=== PATIENT | male | born 1940 | race Caucasian/White ===

== ENCOUNTER 2017-07-18 14:06 | Emergency (ER) | payer MEDICARE, OTHER, MEDICAID ==
[~2017-07-18] VITALS: Ht 177.8 cm; Wt 102.1 kg
[~2017-07-18 14:06] MED LIST: AC325T PO; AC80CT PO; ACYC800T57 PO; ALBU0.8322 IH; AMLO10TA2 PO; AMLO5TAB2 PO; ASP81TEC PO; ATRV10T PO; AZIT-21 PO; AZIT250T12 PO; B12 INJECTION IM; BETH50TA PO; CARB1TAB PO; CARB1TAB22 PO; CARB1TAB4 PO; CARB1TAB44; CARB1TAB6; CARB1TAB6 PO; CARV12.5 PO; CARV6.25 PO; CEFD300C16 PO; CEFU500T5 PO; CETAPHIL CLEANSER TOP; CETAPHIL LOTION TOP; CITA10TA70 PO; CLPD75T PO; CPR500T PO; CRV25T PO; CYAN100053 IM; DCS100C PO; DICL100G13 TOP; DIPH25CA79 PO; DIPH28.33 TP; DOXY100C2 PO; EMOL226L TP; ESCT10T PO; FAMO20TA5 PO; FLUT1DIS26 IH; FRSM40T PO; FURO20TA4 PO; HYDR-3714 PO; HYDR-3720 PO; IPRA3AMP19 IH; KCL10CCR; LACT1CAP45 PO; LEVO125T6 PO; LEVO150T6 PO; LEVO500T69 PO; LEVO750T24 PO; LISI2.5T; LISI20TA PO; LISI40TA PO; LOPE2CAP29 PO; LVCR25100 PO; LVT.088T PO; LVT.15T PO; LVT.1T PO; MAGN-47 PO; MIDO5TAB PO; MPR22T TP; NF-ESOM40C PO; NYST1POW15 TOP; PNT40TEC PO; POTA20TA15 PO; SCP1.5TD TD; SELE118S2 TP; SENN1TAB76 PO; SNN187T PO; SULF1TAB38 PO; TR1O15 TOP; VALS320T8 PO; VISCOUS LIDOCAINE 2% MM; VLS80C PO; [UNRECOGNIZED DRUG - OTHER] TOP
--- OUTSIDE RECORDS SUMMARY | 2017-07-18 14:12 | XMS REPORT | Continuity of Care Document ---
Author Author [facility] Organization [facility] Address Unknown Phone Unavailable Allergies Active Description Code Type Severity Reaction Onset Reported/Identified Relationship to Patient Clinical Status Yes No Known Drug Allergies [id number] Drug Allergy Unknown N/ A 01/05/2012 Medications Problems Date Dx Coded Attending Type Code Diagnosis Diagnosed By 12/16/2013 MYRIAM MASON, JAMES Olsen Ot 214.4 12/16/2013 MYRIAM MASON, JAMES Olsen Ot 550.90 08/25/2015 CRUZ MASON, ÁNGEL Chun Ot 402.90 08/25/2015 CRUZ MASON, ÁNGEL Chun Ot 414.00 08/25/2015 CRUZ MASON, ÁNGEL Chun Ot V45.01 08/25/2015 JULIEN MASON, IGGY Rodney Ot 599.0 08/25/2015 MATT PA, CHET K Ot 244.9 08/25/2015 MATT PA, CHET K Ot 332.0 08/25/2015 MATT PA, CHET K Ot 404.90 08/25/2015 MATT PA, CHET K Ot 414.01 08/25/2015 MATT PA, CHET K Ot 433.10 08/25/2015 MATT PA, CHET K Ot 585.9 08/25/2015 MATT PA, CHET K Ot V45.01 08/25/2015 MYRIAM MASON, JAMES Olsen Ot 550.90 08/25/2015 MYRIAM MASON, JAMES Olsen Ot V72.63 08/25/2015 MYRIAM MASON, JAMES Olsen Ot V72.81 08/25/2015 MYRIAM MASON, JAMES Olsen Ot V72.84 08/25/2015 MYRIAM MASON, JAMES Olsen Ot V74.8 08/28/2015 JULIEN MASON, IGGY Rodney Ot B35.6 08/28/2015 JULIEN MASON, IGGY Rodney Ot E03.9 08/28/2015 JULIEN MASON, IGGY A Ot E78.0 08/28/2015 JULIEN MASON, IGGY A Ot G20 08/28/2015 JULIEN MASON, IGGY A Ot I12.9 08/28/2015 JULIEN MASON, IGGY A Ot I25.10 08/28/2015 JULIEN MASON, IGGY A Ot I50.42 08/28/2015 JULIEN MASON, IGGY A Ot J18.9 08/28/2015 JULIEN MASON, IGGY A Ot K21.9 08/28/2015 JULIEN MASON, IGGY A Ot L89.311 08/28/2015 JULIEN MASON, IGGY A Ot L89.321 08/28/2015 JULIEN MASON, IGGY A Ot N18.9 08/28/2015 JULIEN MASON, IGGY A Ot N31.9 08/28/2015 JULIEN MASON, IGGY A Ot R13.10 08/28/2015 JULIEN MASON, IGGY A Ot R26.0 08/28/2015 JULIEN MASON, IGGY A Ot Z23 08/28/2015 JULIEN MASON, IGGY A Ot Z66 08/28/2015 JULIEN MASON, IGGY A Ot Z87.891 08/28/2015 JULIEN MASON, IGGY A Ot Z95.0 07/16/2016 Ot 401.9 HYPERTENSION NOS 07/16/2016 Ot V58.69 OTH MED,LT,CURRENT USE Procedures Results Encounters ACCT No. Visit Date/Time Discharge Status Pt. Type Provider Facility Loc./Unit Complaint [id number] 08/25/2015 03:28:00 2015 12:30:00 DIS Inpatient IGGY VICTORIA MD Via [address] [id number] 12/15/2013 07:04:00 2013 12:06:00 DIS Outpatient JAMES MIGUEL MD [facility] [id number] 12/14/2013 09:06:00 2013 23:59:59 CLS Outpatient JAMES MIGUEL MD [facility] PREOP [id number] 11/01/2013 12:28:00 2013 23:59:59 CLS Outpatient CHET ARAUZ [facility] [id number] 10/28/2013 09:13:00 2013 23:59:59 CLS Outpatient JULIEN MASON, IGGY Rodney [facility] [id number] 10/05/2013 13:34:00 2013 23:59:59 CLS Outpatient CRUZ MASON, ÁNGEL Chun [facility] CARD [id number] 04/14/2013 10:16:00 2012 23:59:59 CLS Outpatient [id number] 12/31/2011 14:52:00 Document Registration
--- NOTE | 2017-07-18 14:28 | ED General ---
General Chief Complaint: Respiratory Problems Stated Complaint: GURGLING Nursing Triage Note: PT TO [facility] WITH CC OF DIFFICULTY SWALLOWING AND "GARGLING." PT HAS A HX OF DYSPHAGIA WITH A 21 LB WEIGHT LOSS OVER THE LAST MONTH. PT NONE VERBAL , MOTIONS NO WHEN ASKED OF PAIN OR NAUSEA. Nursing Sepsis Screen: No Definite Risk Source of Information: EMS, Care Home Records Exam Limitations: No Limitations History of Present Illness Time Seen by Provider: 14:26 Initial Comments The patient is a 77-year-old white male from [facility]. The nursing staff at [facility] apparently called Dr. Jorge who is taking the outpatient calls for the family practice group. Their concern was that he had lost 20 pounds over the last month. He seemed to be having difficulties in swallowing. He also exhibited a gurgling from the throat. They apparently were unable to address this by oral pharyngeal suctioning. They called Dr. Jorge who apparently stated that he had no previous knowledge of the patient as he was a patient of Dr. Cabral's and therefore they should send him to the emergency room for further workup. Timing/Duration: Other Modifying Factors: improves with Cold Therapy Allergies and Home Medications Allergies Coded Allergies: No Known Drug Allergies (Verified , 01/05/12) Home Medications Acetaminophen 325 Mg Tablet, 650 MG PO Q4H PRN for PAIN, (Reported) TAKES 2 (325MG) TABLETS NEEDED FOR PAIN DO NOT EXCEED 3GM OF ACETAMINOPHEN IN 24 HOURS Albuterol Sulfate 2.5 Mg/3 Ml Solution, 2.5 MG IH Q4H PRN for CONGESTION, ( Reported) Amlodipine Besylate 10 Mg Tablet, 10 MG PO DAILY, (Reported) Atorvastatin Calcium 10 Mg Tablet, 10 MG PO HS, (Reported) Azithromycin 250 Mg Tablet, 250 MG PO DAILY, #4 Prescribed by: IGGY CABRAL on 08/28/15 0843 Carvedilol 12.5 Mg Tablet, 12.5 MG PO BID, (Reported) NOTIFY MD IF SYSTOLIC IS ABOVE 170 OR DIASTOLIC IS ABOVE 90 Cefdinir 300 Mg Capsule, 300 MG PO BID, #10 Prescribed by: IGGY CABRAL on 08/28/15 0843 Clopidogrel 75 Mg Tablet, 75 MG PO DAILY, (Reported) Cyanocobalamin 1,000 Mcg/Ml Vial, 1,000 MCG IM MONTHLY, (Reported) Diclofenac Sod 100 Gm Gel, TOP QID PRN for PAIN, (Reported) APPLY TO SHOULDERS AND KNEES Diphenhydramine HCl 25 Mg Capsule, 25 MG PO Q8H PRN for ITCHING, (Reported) Diphenhydramine HCl/Zinc Acet 28.3 Gm Cream..g., TP Q6H PRN for RASH, (Reported) Docusate Sodium 100 Mg Capsule, 100 MG PO BID, (Reported) Emollient Combination No.40 226 Gm Lotion, TP BID, (Reported) APPLY TO FACE AND NECK FOR RASH Escitalopram Oxalate 10 Mg Tablet, 10 MG PO HS, (Reported) Famotidine 20 Mg Tablet, 20 MG PO DAILY PRN for GI UPSET, (Reported) Fluticasone/Salmeterol 1 Disk Inhp, 1 PUFF IH BID, (Reported) Furosemide 20 Mg Tablet, 20 MG PO WEDNESDAY & WEDNESDAY, (Reported) Hydrocodone Bit/Acetaminophen 1 Tab Tablet, 1 TAB PO Q4H PRN for PAIN, (Reported ) Levodopa/Carbidopa 1 Ea Tab, 2 TAB PO 0700 & 1200, (Reported) TAKES 2 (25-100MG) TABLETS TWICE DAILY AT 0700, 1200 Levodopa/Carbidopa 1 Ea Tab, 1 TAB PO 2000, (Reported) TAKES 1 (25-100MG) TABLET AT 2000 Levothyroxine Sodium 150 Mcg Tablet, 150 MCG PO EVERY OTHER DAY, (Reported) ALTERNATES EVERY OTHER DAY WITH LEVOTHYROXINE 125MCG Levothyroxine Sodium 125 Mcg Tablet, 125 MCG PO EVERY OTHER DAY, (Reported) TAKES EVERY OTHER DAY ALTERNATING WITH LEVOTHYROXINE 150MCG Loperamide Hcl 2 Mg Capsule, 2 MG PO QID PRN for LOOSE STOOLS, (Reported) Magnesium Hydroxide 400 Mg/5 Ml Oral.susp, 30 ML PO DAILY PRN for CONSTIPATION, (Reported) GIVE IF NO BOWEL MOVEMENT FOR 3 DAYS Mupirocin 22 Gm Tube, TP HS PRN for RASH, (Reported) Nystatin 1 Each Powder.ea., TOP BID PRN for RASH, (Reported) Potassium Chloride 20 Meq Tab.prt.sr, 20 MEQ PO WEDNESDAY & THURSDAYS, (Reported) Selenium Sulfide/Menthol 118 Ml Suspension, TP WED, WED, WED, (Reported) USE SELSUN SHAMPOO ON BATH DAYS THREE TIMES WEEKLY Senna 1 Tab Tablet, 1 TAB PO DAILY, (Reported) Senna 1 Tab Tablet, 1 TAB PO Q12H PRN for CONSTIPATION, (Reported) Valsartan 320 Mg Tablet, 320 MG PO DAILY, (Reported) [Betanitason 1% Cream] , TOP DAILY PRN for RASH, (Reported) Constitutional: other Past Wgepmbu-Jmwcif-Uzmrvy Hx Patient Social History Recent Foreign Travel: No Contact w/Someone Who Travel: No Recent Infectious Disease Expo: No Immunizations Up To Date Date of Pneumonia Vaccine: Jul 15, 2012 Date of Influenza Vaccine: May 09, 2015 Surgeries Surgeries: Pacemaker Respiratory Respiratory Disorders: Pneumonia Cardiovascular Cardiac Disorders: Chronic Edema/Swelling, Coronary Artery Disease, High Cholesterol, Hypertension Neurological Neurological Disorders: Parkinson's Disease Reproductive System Hx Reproductive Disorders: No Genitourinary Genitourinary Disorders: Benign Prostatic Hyperpl, Prostate Problems, Renal Failure, Neurogenic Bladder Gastrointestinal Gastrointestinal Disorders: Abdominal Hernia, Gastroesophageal Reflux, Chronic Constipation Musculoskeletal Musculoskeletal Disorders: Arthritis, Chronic Back Pain, Contracture Endocrine Endocrine Disorders: Hypothyroidsim Psychosocial Behavioral Health Disorders: Depression Physical Exam Vital Signs Vital Sign - Last 12Hours 07/18/17 14:14 Temp 97.6 Pulse 72 Resp 20 B/P (MAP) 139/86 (103) Pulse Ox 87 O2 Delivery Nasal Cannula O2 Flow Rate 4.00 Capillary Refill : Less Than 3 Seconds General Appearance: No Apparent Distress, WD/WN, Other Eyes: Bilateral Eye Normal Inspection HEENT: Normal ENT Inspection Neck: Full Range of Motion, Normal Inspection, Non Tender, Supple, Carotid Bruit Respiratory: Chest Non Tender, Lungs Clear, Normal Breath Sounds, No Accessory Muscle Use, No Respiratory Distress Progress/Results/Core Measures Suspected Sepsis Recent Fever Within 48 Hours: No Infection Criteria Present: None New/Unexplained Altered Menta: No Sepsis Screen: No Definite Risk Sepsis Diagnosis: SIRS Temperature:97.6 Pulse: 72 Respiratory Rate: 20 Laboratory Tests 07/18/17 14:19: White Blood Count 9.0 Blood Pressure 139 /86 Mean: 103 Laboratory Tests 07/18/17 14:19: Creatinine 1.60H, Platelet Count 160, Total Bilirubin 0.9 Results/Orders Lab Results Laboratory Tests Test 07/18/17 14:19 Range/Units White Blood Count 9.0 4.3-11.0 10^3/uL Red Blood Count 4.95 4.35-5.85 10^6/uL Hemoglobin 14.3 13.3-17.7 G/DL Hematocrit 44 40-54 % Mean Corpuscular Volume 89 80-99 FL Mean Corpuscular Hemoglobin 29 25-34 PG Mean Corpuscular Hemoglobin Concent 32 32-36 G/DL Red Cell Distribution Width 14.4 10.0-14.5 % Platelet Count 160 130-400 10^3/uL Mean Platelet Volume 11.1 H 7.4-10.4 FL Neutrophils (%) (Auto) 62 42-75 % Lymphocytes (%) (Auto) 21 12-44 % Monocytes (%) (Auto) 16 H 0-12 % Eosinophils (%) (Auto) 1 0-10 % Basophils (%) (Auto) 0 0-10 % Neutrophils # (Auto) 5.6 1.8-7.8 X 10^3 Lymphocytes # (Auto) 1.9 1.0-4.0 X 10^3 Monocytes # (Auto) 1.5 H 0.0-1.0 X 10^3 Eosinophils # (Auto) 0.1 0.0-0.3 10^3/uL Basophils # (Auto) 0.0 0.0-0.1 10^3/uL Sodium Level 141 135-145 MMOL/L Potassium Level 5.7 H 3.6-5.0 MMOL/L Chloride Level 110 H 98-107 MMOL/L Carbon Dioxide Level 22 21-32 MMOL/L Anion Gap 9 5-14 MMOL/L Blood Urea Nitrogen 45 H 7-18 MG/DL Creatinine 1.60 H 0.60-1.30 MG/DL Estimat Glomerular Filtration Rate 42 BUN/Creatinine Ratio 28 Glucose Level 110 H 70-105 MG/DL Calcium Level 9.5 8.5-10.1 MG/DL Total Bilirubin 0.9 0.1-1.0 MG/DL Aspartate Amino Transf (AST/SGOT) 84 H 5-34 U/L Alanine Aminotransferase (ALT/SGPT) 180 H 0-55 U/L Alkaline Phosphatase 114 40-136 U/L Total Protein 6.8 6.4-8.2 GM/DL Albumin 3.5 3.2-4.5 GM/DL My Orders Orders - CHRISTOPHER SALAS MD Cbc With Automated Diff (07/18/17 14:22) Comprehensive Metabolic Panel (07/18/17 14:22) Chest 1 View, Ap/Pa Only (07/18/17 14:22) Ns Iv 1000 Ml (Sodium Chloride 0.9%) (07/18/17 15:30) Vital Signs/I&O Vital Sign - Last 12Hours 07/18/17 14:14 Temp 97.6 Pulse 72 Resp 20 B/P (MAP) 139/86 (103) Pulse Ox 87 O2 Delivery Nasal Cannula O2 Flow Rate 4.00 Capillary Refill : Less Than 3 Seconds Blood Pressure Mean: 103 Departure Communication (Admissions) Progress Notes 1621 chest x-ray shows basilar scarring. Hemoglobin on previous draw was 12.5 today is 14.3 the white count is 9000. Creatinine on previous draw was 1.3 to today is 1.6. These appear consistent with relative dehydration and IV fluids are being given. Impression Impression: Primary Impression: dehydration Disposition: Condition: Stable/Unchanged Departure-Patient Inst. Referrals: IGGY CABRAL MD (PCP/Family) Primary Care Physician CHRISTOPHER SALAS MD Jul 18, 2017 14:28
[2017-07-18 14:32] LABS: BASOPHILS % (AUTO) 0 % (0-10); EOSINOPHILS # (AUTO) 0.1 10^3/uL (0.0-0.3); EOSINOPHILS % (AUTO) 1 % (0-10); LYMPHOCYTES # (AUTO) 1.9 X 10^3 (1.0-4.0); LYMPHOCYTES % (AUTO) 21 % (12-44); MEAN CORPUSCULAR HEMOGLOBIN 29 PG (25-34); MEAN CORPUSCULAR HGB CONC 32 G/DL (32-36); MEAN CORPUSCULAR VOLUME 89 FL (80-99); MEAN PLATELET VOLUME 11.1 FL (7.4-10.4); MONOCYTES # (AUTO) 1.5 X 10^3 (0.0-1.0); MONOCYTES % (AUTO) 16 % (0-12); NEUTROPHILS # (AUTO) 5.6 X 10^3 (1.8-7.8); NEUTROPHILS % (AUTO) 62 % (42-75); PLATELET COUNT 160 10^3/uL (130-400); RED BLOOD COUNT 4.95 10^6/uL (4.35-5.85); RED CELL DISTRIBUTION WIDTH 14.4 % (10.0-14.5)
[2017-07-18 14:48] LABS: ALBUMIN 3.5 GM/DL (3.2-4.5); BILIRUBIN,TOTAL 0.9 MG/DL (0.1-1.0); CALCIUM 9.5 MG/DL (8.5-10.1); CREATININE SERUM 1.6 MG/DL (0.60-1.30); POTASSIUM 5.7 MMOL/L (3.6-5.0); TOTAL PROTEIN 6.8 GM/DL (6.4-8.2)
--- NOTE | 2017-07-18 15:21 | Diagnostic Imaging Report ---
INDICATION: Difficulty swallowing, gargling. COMPARISON: 08/26/2015. TECHNIQUE: Single frontal radiograph of the chest dated 07/18/2017. FINDINGS: Pacer device is again noted with a battery pack overlying the left chest. The cardiac silhouette is within normal limits. No significant pulmonary vascular congestion. Minimal left basilar scarring and/or atelectasis. Otherwise, the lungs appear clear. No significant pleural effusion. No pneumothorax. No acute osseous abnormality. IMPRESSION: 1. Minimal left basilar scarring and/or atelectasis. 2. Additional postsurgical and chronic findings as above. Dictated by: Dictated on workstation # [id number]
[2017-07-18] MEDS ORDERED: NS IV 1000 ML 1,000 ML IV SCH (15:30)
[2017-07-18 17:05] VITALS: BP 150/75
== END 2017-07-18 17:05 | disposition home or self-care (01) ==
LOC: EDUNIT# 14:06 → ER 14:08
DX: E86.0 Dehydration (principal); I25.10 Atherosclerotic heart disease of native coronary artery without angina pectoris; I10 Essential (primary) hypertension; E78.00 Pure hypercholesterolemia, unspecified; G20 Parkinson's disease; N40.0 Benign prostatic hyperplasia without lower urinary tract symptoms; K21.9 Gastro-esophageal reflux disease without esophagitis; M19.90 Unspecified osteoarthritis, unspecified site; E03.9 Hypothyroidism, unspecified; F32.9 Major depressive disorder, single episode, unspecified; Z87.19 Personal history of other diseases of the digestive system; Z95.0 Presence of cardiac pacemaker; Z87.01 Personal history of pneumonia (recurrent)
CPT/HCPCS: 36415; 71010; 80053; 85025; 99283

== ENCOUNTER → 2017-07-21 | Outpatient (CLI) | payer MEDICARE, OTHER, MEDICAID | LOC: SDC 11:00 | PROVIDERS: ATTEND Family Medicine | DX: E86.0 Dehydration (principal); L03.317 Cellulitis of buttock ==